=== PATIENT | female | born 1960 | race Caucasian/White ===

== ENCOUNTER → 2024-02-22 11:10 | Outpatient (BNVA) | payer OTHER, SELFPAY | PROVIDERS: Visit Provider Nurse Practitioner Family | DX: E78.2 Mixed hyperlipidemia; Z79.899 Other long term (current) drug therapy; Z13.6 Encounter for screening for cardiovascular disorders | CPT/HCPCS: 80061; 81003; 82306; 82607; 82746; 83036; 83550; 84439; 84443 ==

== ENCOUNTER → 2024-07-27 11:06 | Outpatient (BNVA) | payer OTHER, SELFPAY | PROVIDERS: PCP Nurse Practitioner Family; Visit Provider Nurse Practitioner Family | DX: Z13.6 Encounter for screening for cardiovascular disorders (principal); F41.9 Anxiety disorder, unspecified; R06.2 Wheezing; J44.9 Chronic obstructive pulmonary disease, unspecified; Z79.899 Other long term (current) drug therapy; E55.9 Vitamin D deficiency, unspecified; I70.90 Unspecified atherosclerosis | CPT/HCPCS: 71046; 80053; 80061; 81003; 82306; 83036; 84443; 85025 ==

== ENCOUNTER 2025-01-27 10:14 | Outpatient (CLI) | payer OTHER, SELFPAY ==
--- NOTE | 2025-01-27 10:15 | US_ITS ---
WS: [id number] ULTRASOUND SOFT TISSUES LEFT inguinal region. HISTORY: R59.0 - Localized enlarged lymph nodes COMPARISON: None available. TECHNIQUE: 2-D and color Doppler imaging is submitted. Ultrasound directed to the inguinal region. There is a large soft tissue mass of mixed echogenicity. This is a very solid mass does not have increased vascularity. Mass measures 3.4 x 2.2 x 2.4 cm. This does not have a typical appearance for a lymph node. If this is a lymph node it is very abnormal. There is no fatty hilum. During Valsalva there was movement suggesting this may be omental fat from the hernia. No associated fluid. No bowel content identified. US/US soft tissue/extremity [id number] IMPRESSION: Soft tissue mass in the LEFT inguinal region. This is not typical for a lymph n ode. This may be omental fat associated with an inguinal hernia. Recommend foll ow-up pelvic CT for further evaluation.
== END 2025-01-27 10:15 | disposition home or self-care (01) ==
LOC: RAD 10:20
PROVIDERS: PCP Nurse Practitioner Family; Visit Provider Nurse Practitioner Family
DX: R59.0 Localized enlarged lymph nodes (principal); R93.89 Abnormal findings on diagnostic imaging of other specified body structures
CPT/HCPCS: 76882

== ENCOUNTER 2025-02-09 14:24 | Outpatient (CLI) | payer OTHER, SELFPAY ==
--- NOTE | 2025-02-09 14:15 | CT_ITS ---
WS: [id number] CT PELVIS WITH CONTRAST HISTORY: LEFT inguinal mass. TECHNIQUE: Contiguous imaging is performed of the pelvis with contrast. Coronal and sagittal reformats are reviewed. All CT scans at [facility] use at least one of these dose optimization techniques: automated exposure control; mA and/or kV adjustment per patient size (includes targeted exams where dose is matched to clinical indication); or iterative reconstruction. DLP: 192.78 mGy.cm COMPARISON: Ultrasound 01/27/2025 Palpable area in the LEFT inguinal region corresponds to a lipomatous mass measuring 3.0 x 3.2 x 3.3 cm. This does appear to be omental fat herniating through a very tiny defect in the abdominal wall just anterior to the acetabulum. There is some very slight fat stranding which may suggest this is acute or undergoing necrosis. There is a loop of small bowel very closely associated with the hernia tract but there is no obstruction. No incarcerated hernia at this time. Visualized GI tract within the pelvis demonstrates constipation. No small bowel obstruction. There is no ascites or free fluid. Dense calcification of the distal aorta and iliac arteries. Mild narrowing of the hip joints. No bone destruction. CT/CT pelvis w con* [id number] IMPRESSION: 1. Mass in the LEFT inguinal region is herniated omental fat with mild strandi ng. There is no GI tract extending into the hernia tract. There is a very small orifice through which the fat has herniated. 2. There is mild soft tissue stranding associated with the omental fat herniat ion which may indicate mild fat necrosis. No fluid in the hernia sac. 3. Moderate atherosclerosis distal aorta and iliac arteries.
[2025-02-09 14:55] LABS: Blood Urea Nitrogen 15 mg/dL (8-23)
[2025-02-09] MEDS: iohexol 350 mg/mL 500 mL Btl (per mL) IV (15:05)
== END 2025-02-09 14:25 | disposition home or self-care (01) ==
LOC: RAD 14:25
PROVIDERS: PCP Nurse Practitioner Family; Visit Provider Nurse Practitioner Family
DX: R19.09 Other intra-abdominal and pelvic swelling, mass and lump (principal)
CPT/HCPCS: 72193; 82565; 84520

== ENCOUNTER → 2025-04-18 10:24 | Outpatient (BNVA) | payer OTHER, SELFPAY | PROVIDERS: PCP Nurse Practitioner Family; Referring Provider Nurse Practitioner Family; Visit Provider Internal Medicine | DX: J44.9 Chronic obstructive pulmonary disease, unspecified (principal) | CPT/HCPCS: 36415; 82103 ==